=== PATIENT | male | born 1965 | race Caucasian/White ===

== ENCOUNTER 2019-02-06 00:04 | Emergency (ER) | payer SELFPAY ==
[~2019-02-06] VITALS: Ht 170.2 cm; Wt 74.8 kg
[2019-02-06 00:10] VITALS: BP_SYST 137
--- NOTE | 2019-02-06 01:22 | NUR ---
Patient to ER [facility] to [facility] for evaluation. Side rails up.
--- NOTE | 2019-02-06 01:23 | NUR ---
Patient brought in complaining of anxiety with shakiness and palpitations after playing bowling and drinking 5 beers. Denies any pain. Denies any drug use. Reports smoking cigarettes. No other complaints/injuries per patient or as noted. Will continue to monitor.
--- NOTE | 2019-02-06 01:25 | NUR ---
ER Dr. Delgado at bedside examining patient.
--- NOTE | 2019-02-06 01:46 | NUR ---
EKG performed at by RUBA Bautista. Physician given copy of EKG for review.
[2019-02-06 02:07] VITALS: BP_SYST 128
--- NOTE | 2019-02-06 02:07 | NUR ---
Patient given written and verbal discharge instructions and verbalizes understanding. ER MD Delgado discussed with patient the results and treatment provided. Patient in stable condition. ID arm band removed. Rx of ambien, omeprazole, and valium given. Patient educated on pain management and to follow up with PMD. Pain Scale 0/10 Opportunity for questions provided and answered. Medication side effect fact sheet provided.
== END 2019-02-06 02:07 | disposition home or self-care (01) ==
LOC: SED 00:04
DX: F41.9 Anxiety disorder, unspecified (principal); G47.00 Insomnia, unspecified; K21.9 Gastro-esophageal reflux disease without esophagitis; I10 Essential (primary) hypertension
CPT/HCPCS: 93005; 99284

== ENCOUNTER 2019-04-11 19:31 | Emergency (ER) | payer MEDICAID ==
[~2019-04-11] VITALS: Ht 170.2 cm; Wt 72.6 kg
[2019-04-11 19:33] VITALS: BP_SYST 155
[2019-04-11] MEDS ORDERED: ASPIRIN 325 MG TABLET PO ONE (20:00)
[2019-04-11 20:24] LABS: HEMOGLOBIN 15.2 g/dL (14.0-18.0)
[2019-04-11 20:31] LABS: BASOPHILS % (AUTO) 0.8 % (0.0-2.0); EOSINOPHILS # (AUTO) 0.1 K/uL (0.0-0.4); EOSINOPHILS % (AUTO) 1.9 % (0.0-4.0); HEMATOCRIT 44.9 % (36-54); LYMPHOCYTES # (AUTO) 1.9 K/uL (1.0-5.5); LYMPHOCYTES % (AUTO) 32.3 % (20.5-51.5); MEAN CORPUSCULAR HEMOGLOBIN 29 pg (27-31); MEAN CORPUSCULAR HGB CONC 34 % (32-36); MEAN CORPUSCULAR VOLUME 87 fL (79.0-98.0); MONOCYTES # (AUTO) 0.6 K/uL (0.0-1.0); MONOCYTES % (AUTO) 10.5 % (1.7-9.3); NEUTROPHILS # (AUTO) 3.1 K/uL (1.8-7.7); NEUTROPHILS % (AUTO) 54.5 % (40.0-70.0); PLATELET COUNT (AUTO) 169 K/uL (130-430); RED BLOOD CELL COUNT(AUTO) 5.15 MIL/uL (4.2-6.2); RED CELL DISTRIBUTION WIDTH 16.5 % (9.0-15.0); WHITE BLOOD COUNT (AUTO) 5.7 K/uL (4.8-10.8)
[2019-04-11 20:32] LABS: CALCIUM 9.5 mg/dL (8.4-11.0); CREATININE 0.78 mg/dL (0.55-1.30)
[2019-04-11 20:34] LABS: INR 0.9 (0.80-1.20); PROTHROMBIN TIME 9.3 SECS (9.5-12.5)
[2019-04-11 20:37] LABS: TOTAL BILIRUBIN 0.6 mg/dL (0.0-1.0)
[2019-04-11 21:21] LABS: BILIRUBIN,URINE NEGATIVE (NEGATIVE); BLOOD, URINE NEGATIVE (NEGATIVE); CLARITY/URINE CLEAR (CLEAR); COLOR,URINE YELLOW (YELLOW); GLUCOSE,URINE NEGATIVE (NEGATIVE); KETONES,URINE NEGATIVE (NEGATIVE); LEUKOCYTE ESTERASE ,URINE NEGATIVE (NEGATIVE); NITRITE, URINE NEGATIVE (NEGATIVE); PROTEIN URINE NEGATIVE (NEGATIVE); UROBILINOGEN,URINE 0.2 (0.2-1.0)
[2019-04-11 21:33] LABS: BARBITURATE, URINE NEGATIVE (NEG <=200); BENZODIAZEPINE, URINE NEGATIVE (NEG <=150); CANNABINOID, URINE NEGATIVE (NEG <=50); COCAINE, URINE NEGATIVE (NEG <=150); METHAMPHETAMINES SCREEN,URINE NEGATIVE (NEG <=500); OPIATE, URINE NEGATIVE (NEG <=100); PHENCYCLIDINE SCREEN,URINE NEGATIVE (NEG <=25); UR TRICYCLIC ANTIDEPRESSANTS NEGATIVE (NEG <=300); URINE AMPHETAMINE NEGATIVE (NEG <=500); URINE METHADONE NEGATIVE (NEG <=200); URINE OXYCODONE SCREEN NEGATIVE (NEG <=100); URINE PROPOXYPHENE SCREEN NEGATIVE (NEG <=300)
[2019-04-11] MEDS ORDERED: LORazepam 2 MG/ML VIAL (FOR ER USE) IM ONE (21:45)
[2019-04-11] MEDS ORDERED: LORazepam 1 MG TABLET PO ONE (22:00)
[2019-04-11 22:26] VITALS: BP_SYST 135
== END 2019-04-11 22:26 | disposition home or self-care (01) ==
LOC: SED 19:31
DX: F41.9 Anxiety disorder, unspecified (principal); R07.89 Other chest pain; I10 Essential (primary) hypertension; F17.200 Nicotine dependence, unspecified, uncomplicated; Z71.6 Tobacco abuse counseling
CPT/HCPCS: 36415; 71045; 80053; 80307; 81003; 82550-TC; 83880; 84484; 85025; 85379; 85610-TC; 99284